=== PATIENT | male | born 2000 | race Caucasian/White ===

== ENCOUNTER 2018-10-19 19:34 | Emergency (ER) | payer BC ==
[2018-10-19] MEDS ORDERED: Famotidine IV* 10 MG/ML 2 ML (20 mg) IV SLOW PU ONE (19:49)
[2018-10-19] MEDS ORDERED: diPHENhydraMINE IV* 50 MG/ML 1 ml VIAL (BENADRYL) SLOW PUSH ONE (19:49)
[2018-10-19] MEDS ORDERED: methylPREDNISolone 125 MG* 2 ML VIAL IV ONE (19:49)
[2018-10-19] MEDS ORDERED: NS 0.9% 500 ML* 500 ML IV ONE (19:50)
--- NOTE | 2018-10-19 20:00 | ED ---
Allergic Reaction/Systemic - HPI Summary HPI Summary: This patient is a 17 year old M presenting to [facility] with a chief complaint of an allergic reaction. The patient states he is allergic to peanuts and he accidentally ate a spring roll with peanut butter in it. He reports trouble swallowing, mouth tingling, nasal congestion, nausea, and vomiting. He states he vomited once. He denies any prior congestion. The patient states he has an Epi-Pen but denies using it. - History of Current Complaint Chief Complaint: EDAllergicReaction Time Seen by Provider: 10/19/18 19:41 Hx Obtained From: Patient Onset/Duration: Sudden Onset Severity Initially: Mild Severity Currently: Mild Pain Intensity: 0 Pain Scale Used: 0-10 Numeric Associated Signs And Symptoms: Positive: Nausea, Throat Tightening, Vomiting - Related Hx Possible Reaction To: Food - Peanut butter - Allergies/Home Medications Allergies/Adverse Reactions: Allergies Allergy/AdvReac Type Severity Reaction Status Date / Time hazelnut Allergy Anaphylatic Verified 10/19/18 19:39 Shock peanut Allergy Anaphylatic Verified 10/19/18 19:39 Shock PMH/Surg Hx/FS Hx/Imm Hx Endocrine/Hematology History: Denies: Hx Diabetes Cardiovascular History: Denies: Hx Hypertension Infectious Disease History: No Infectious Disease History: Denies: Traveled Outside the [place] in Last 30 Days - Family History Known Family History: Negative: Cardiac Disease, Hypertension, Diabetes - Social History Alcohol Use: Occasionally Substance Use Type: Reports: None Smoking Status (MU): Never Smoked Tobacco Review of Systems Positive: Nasal Discharge, Other - Difficulty swallowing Positive: Vomiting, Nausea Neurological: Other - Tingling All Other Systems Reviewed And Are Negative: Yes Physical Exam - Summary Physical Exam Summary: VITAL SIGNS: Reviewed. GENERAL: Patient is a well-developed and nourished MALE who is lying comfortable in the stretcher. Patient is not in any acute respiratory distress. HEAD AND FACE: No signs of trauma. No ecchymosis, hematomas or skull depressions. No sinus tenderness. EYES: PERRLA, EOMI x 2, No injected conjunctiva, no nystagmus. EARS: Hearing grossly intact. Ear canals and tympanic membranes are within normal limits. MOUTH: Uvulal swelling. NECK: Supple, trachea is midline, no adenopathy, no JVD, no carotid bruit, no c- spine tenderness, neck with full ROM. CHEST: Symmetric, no tenderness at palpation LUNGS: Clear to auscultation bilaterally. No wheezing or crackles. CVS: Regular rate and rhythm, S1 and S2 present, no murmurs or gallops appreciated. ABDOMEN: Soft, non-tender. No signs of distention. No rebound no guarding, and no masses palpated. Bowel sounds are normal. EXTREMITIES: FROM in all major joints, no edema, no cyanosis or clubbing. NEURO: Alert and oriented x 3. No acute neurological deficits. Speech is normal and follows commands. SKIN: Dry and warm Triage Information Reviewed: Yes Vital Signs On Initial Exam: Initial Vitals Temp Pulse Resp BP Pulse Ox 98.3 F 83 20 153/74 100 10/19/18 19:34 10/19/18 19:34 10/19/18 19:34 10/19/18 19:34 10/19/18 19:34 Vital Signs Reviewed: Yes Diagnostics - Vital Signs Vital Signs Temp Pulse Resp BP Pulse Ox 10/19/18 19:34 98.3 F 83 20 153/74 100 - Laboratory Lab Statement: Any lab studies that have been ordered have been reviewed, and results considered in the medical decision making process. Allergic Reaction Course/Dx - Course Course Of Treatment: This patient is a 17 year old M presenting to [facility] with a chief complaint of an allergic reaction. The patient states he is allergic to peanuts and he accidentally ate a spring roll with peanut butter in it. His physical exam was remarkable for swelling of the uvula. He was given methylpredisolone, famotidine, and diphenhydramine to treat the allergic reaction. He will be prescribed medication and he will be discharged. This plan was discussed with the patient and he was agreeable with this plan. - Diagnoses Provider Diagnoses: Allergic reaction Discharge - Sign-Out/Discharge Documenting (check all that apply): Patient Departure - Discharge - Discharge Plan Condition: Stable Disposition: HOME Prescriptions: hydrOXYzine HCL TAB* [Atarax TAB 50 MG *] 50 mg PO TID PRN #14 tab PRN Reason: Pruritis predniSONE TAB* [Deltasone TAB*] 50 mg PO DAILY #3 tab Patient Education Materials: General Allergic Reaction (ED) Referrals: No Primary Care Phys,NOPCP [Primary Care Provider] - Additional Instructions: Return to ED with any new or worsening symptoms. - Billing Disposition and Condition Condition: STABLE Disposition: Home - Attestation Statements Document Initiated by Flashibjossy: Yes Documenting Scribe: Joe Shane Provider For Whom Yary is Documenting (Include Credential): Chloé Perez MD Scribe Attestation: Joe North, scribed for Chloé Perez MD on 10/20/18 at 0119. Scribe Documentation Reviewed: Yes Provider Attestation: The documentation as recorded by the Joe alfred accurately reflects the service I personally performed and the decisions made by meMichele MD Status of Scribe Document: Viewed
[2018-10-19 21:27] VITALS: BP 128/75
== END 2018-10-19 21:30 | disposition home or self-care (01) ==
LOC: ED 19:34
DX: T78.1XXA Other adverse food reactions, not elsewhere classified, initial encounter (principal); R20.2 Paresthesia of skin; R09.81 Nasal congestion; R11.2 Nausea with vomiting, unspecified; R13.10 Dysphagia, unspecified; X58.XXXA Exposure to other specified factors, initial encounter; Z91.018 Allergy to other foods; Z91.010 Allergy to peanuts
CPT/HCPCS: 96374; 96375; 99283; J1200; J2930

== ENCOUNTER 2019-08-21 19:11 | Emergency (ER) | payer BC, OTHER ==
--- NOTE | 2019-08-21 19:15 | ED ---
Laceration/Wound HPI - HPI Summary HPI Summary: 18 yo male presents with scalp laceration. He tells me that he was putting groceries in his truck with his mother and mom closed the trunk accidentally and it impacted pt on scalp. Pt sustained a small laceration here. No LOC. Applied pressure to the area and came directly to the ED. Nothing OTC for pain. Tetanus is UTD - History of Current Complaint Stated Complaint: CUT ON HEAD PER MOM Time Seen by Provider: 08/21/19 19:15 Hx Obtained From: Patient, Family/Mid Level Clinician Onset/Duration: Sudden Onset Onset Severity: Moderate Current Severity: Moderate Pain Intensity: 6 Pain Scale Used: 0-10 Numeric - Allergy/Home Medications Allergies/Adverse Reactions: Allergies Allergy/AdvReac Type Severity Reaction Status Date / Time hazelnut Allergy Anaphylatic Verified 08/21/19 19:14 Shock peanut Allergy Anaphylatic Verified 08/21/19 19:14 Shock PMH/Surg Hx/FS Hx/Imm Hx Endocrine/Hematology History: Denies: Hx Diabetes Cardiovascular History: Denies: Hx Hypertension Psychiatric History: Reports: Hx Anxiety - Surgical History Surgical History: None Infectious Disease History: No Infectious Disease History: Denies: Traveled Outside the [place] in Last 30 Days - Family History Known Family History: Negative: Cardiac Disease, Hypertension, Diabetes - Social History Occupation: Student Lives: With Family Alcohol Use: Occasionally Substance Use Type: Reports: None Smoking Status (MU): Never Smoked Tobacco Review of Systems Constitutional: Negative Eyes: Negative ENT: Negative Cardiovascular: Negative Respiratory: Negative Musculoskeletal: Negative Skin: Other - Head lac Neurological: Negative Psychological: Normal All Other Systems Reviewed And Are Negative: No Physical Exam - Summary Physical Exam Summary: GENERAL: NAD. WDWN. No pain distress. SKIN: Parietal scalp with 1.5cm partial thickness laceration. Dried blood. HEENT: Head: See skin NECK: Supple. Nontender. FROM CHEST: CTAB. No r/r/w. No accessory muscle use. Breathing comfortably and in no distress. CV: RRR. Pulses intact. Brisk cap refill. ABDOMEN: Soft. NTTP. Bowel sounds present MSK: FROM in B/L UEs and LEs with symmetric strength. NEURO: A&Ox3. 3 word recall, remote, recent memory, ability to follow 2-step directions, and attention intact. CN: II: Peripheral welch intact. Vision normal. III, IV, : EOMI. No nystagmus. PERRLA. V: Sensations intact and symmetric. Opens mouth and clenches teeth. VII: No facial asymmetry. Forehead wrinkles. Grins, shuts eyes, frowns, puffs cheeks. VIII: Hearing intact to finger rub. IX, X: Swallows and coughs. Uvula midline. XI: Shrugs shoulders. Turns head against resistance. XII: No tongue deviation [id number] are intact. Gait with normal base. Romberg: maintains balance, no pronator drift. Normal speech. No facial drooping. PSYCH: Age appropriate behavior. Triage Information Reviewed: Yes Vital Signs On Initial Exam: Initial Vitals Temp Pulse Resp BP Pulse Ox 98.5 F 68 18 158/89 99 08/21/19 19:12 08/21/19 19:12 08/21/19 19:12 08/21/19 19:12 08/21/19 19:12 Vital Signs Reviewed: Yes Procedures - Sedation Patient Received Moderate/Deep Sedation with Procedure: No - Laceration/Wound Repair 1 Location: head Description: Linear Length, Depth and Shape: 1.5cm Irrigated w/ Saline (ccs): 200 Laceration/Wound Explored: clean Closure: Orlin #__ - 3 Diagnostics - Vital Signs Vital Signs Temp Pulse Resp BP Pulse Ox 08/21/19 19:12 98.5 F 68 18 158/89 99 - Laboratory Lab Statement: Any lab studies that have been ordered have been reviewed, and results considered in the medical decision making process. Laceration Repair Course/Dx - Course Course Of Treatment: The procedure was explained to the pt and all questions were answered. A time out was performed, witnessed, and signed. The area was irrigated with 200mL sterile saline. Three orlin were applied and laceration approximated. Homeostasis achieved. Pt tolerated procedure well. - Clinical Impression Provider Diagnoses: Scalp laceration Discharge ED - Sign-Out/Discharge Documenting (check all that apply): Patient Departure - Discharge Plan Condition: Stable Disposition: HOME Patient Education Materials: Staple Care (ED) Referrals: No Primary Care Phys,NOPCP [Primary Care Provider] - Additional Instructions: If you develop a fever, shortness of breath, chest pain, new or worsening symptoms - please call your PCP or go to the ED immediately. Gently wash the area daily with soap and water Return or go to [facility] in 8-10 days to have your THREE orlin removed - Billing Disposition and Condition Condition: STABLE Disposition: Home - Attestation Statements Provider Attestation: I was available for consult. This patient was seen by the JUAN. The patient was not presented to, seen by, or examined by me. Mauro Aquino MD
[2019-08-21 20:01] VITALS: BP 135/59
== END 2019-08-21 19:58 | disposition home or self-care (01) ==
LOC: ED 19:11
DX: S01.01XA Laceration without foreign body of scalp, initial encounter (principal); V49.88XA Car occupant (driver) (passenger) injured in other specified transport accidents, initial encounter; Y92.9 Unspecified place or not applicable
CPT/HCPCS: 12001; 99282